=== PATIENT | male | born 1980 | race Caucasian/White ===

== ENCOUNTER 2023-08-08 08:45 | Outpatient (AMB) | payer BC, SELFPAY ==
--- NOTE | 2023-08-08 09:32 | AM.OFFWIN_ITS ---
Intake Vital Signs 08/08/23 09:33 Height 5 ft 11 in Weight 225 lb BMI 31.4 BP 114/70 Blood Pressure Location Lt brachial Position Sitting Pulse 97 Pulse Source Pulse Oximeter Temp 99.3 F Temp Source Temporal Artery Scan Pulse Oximetry (%) 97 Oxygen Delivery Method Room Air Intake Visit Reasons: [employer] sore throat chills (lobby) Intake Note: pt is here today for sore throat started yesterday Patient Tobacco Use Status: Never used Tobacco Allergies Penicillins Allergy (Mild, Verified 08/08/23 10:16) Hives Medication List - Last Reconciled 08/08/23 by Calderon Dickerson MD olanzapine 2.5 mg PO BEDTIME sertraline 50 mg PO DAILY Do you need a note to return to daycare/school/sports/work: No HPI [employer] sore throat chills (lobby) HPI Details Patient presents for a sick visit. Reporting symptoms of sinus congestion, sore throat and difficulty swallowing. Low-grade fever. No family member is sick. No recent travel. Patient reports symptoms of malaise and fatigue. PFSH Social History Patient Tobacco Use Status: Never used Tobacco Physical Exam Vital Signs: Last Vital Signs Temp 99.3 F 08/08/23 09:33 Pulse 97 08/08/23 09:33 BP 114/70 08/08/23 09:33 Pulse Ox 97 08/08/23 09:33 Oxygen Delivery Method Room Air 08/08/23 09:33 BMI result Body Mass Index 31.4 Const General: cooperative and healthy appearing Nutritional Appearance: well nourished Orientation/consciousness: patient oriented x3 Limitations: no limitations HEENT Head: Yes normal to inspection Eyes General: appearance normal, both eyes and all related structures Neck Neck: Yes normal visual inspection Chest Chest palpation & inspection: normal palpation of entire chest wall Resp Effort & Inspection: normal respiratory effort Neuro General: patient oriented x3 Assessment & Plan Assessment & Plan (1) Upper respiratory tract infection: Code(s): J06.9 - Acute upper respiratory infection, unspecified Plan: Increase fluid intake. Tylenol for aches and pains. If symptoms worsen, follow-up here for a recheck. No antibiotics needed. Viral swab done. Will call with results. Coding Level of Care Code Est Pt Level 3 (89885) Diagnoses Upper respiratory tract infection J06.9
[2023-08-08 09:33] VITALS: BP 114/70; PULSE 97; TEMP 37.4; O2SAT 97; BMI 31.4
== END 2023-08-08 10:17 | disposition home or self-care (01) ==
PROVIDERS: PCP Internal Medicine; Visit Provider Internal Medicine
DX: J06.9 Acute upper respiratory infection, unspecified (principal)
CPT/HCPCS: 99213

== ENCOUNTER 2023-08-08 16:16 | Outpatient (REF) | payer BC, SELFPAY ==
[2023-08-08 17:05] LABS: Influenza A PCR NEGATIVE (Negative); Influenza B PCR NEGATIVE (Negative); Resp Syncy Virus RNA Qual PCR NEGATIVE (Negative); SARS COV2 PCR INHOUSE NEGATIVE (Negative)
== END 2023-08-08 16:17 | disposition home or self-care (01) ==
LOC: HO.LNP 16:16
PROVIDERS: Visit Provider Internal Medicine
DX: R43.9 Unspecified disturbances of smell and taste (principal)
CPT/HCPCS: 0241U